=== PATIENT | female | born 1935 | race Caucasian/White ===

== ENCOUNTER 2016-07-24 00:01 | Inpatient (IN) | payer MEDICARE, OTHER, MEDICAID ==
[~2016-07-24] VITALS: Ht 180.3 cm; Wt 72.6 kg
[2016-07-24 01:50] LABS: BASOPHILS 0.2 % (0.0-2.0); EOSINOPHILS 1.1 % (0-7); HEMOGLOBIN 12.2 g/dL (12-16); IMMATURE GRANULOCYTES 0.1 % (0-5); LYMPHOCYTES 15.4 % (15-50); MCH 30.7 pg (26.0-34.0); MCHC 31.3 g/dL (31.0-37.0); MCV 98.2 fL (80.0-100.0); MEAN PLATELET VOLUME 11.4 fL (7.4-10.4); MONOCYTES 14.7 % (2-11); NEUTROPHILS 68.5 % (40-80); PLATELET COUNT 110 10x3/uL (130-400); RBC 3.97 10x6/uL (4.00-5.40); RDW 13.7 % (11.5-14.5); WBC 9.3 10x3/uL (4.8-10.8)
[2016-07-24 01:59] LABS: ALBUMIN 2.3 g/dL (3.4-5.0); ALKALINE PHOSPHATASE 61 U/L (46-116); ALT (SGPT) 10 U/L (10-68); CALC OSMOLALITY 282 mosm/kg (275-300); CALCIUM 9.6 mg/dL (8.5-10.1); CARBON DIOXIDE 31.8 mmol/L (21.0-32.0); CHLORIDE - SERUM 106 mmol/L (98-107); CREATININE - SERUM 0.6 mg/dL (0.6-1.3); GLUCOSE 94 mg/dL (74-106); POTASSIUM - SERUM 4.4 mmol/L (3.5-5.1); PROTEIN - SERUM 6.6 g/dL (6.4-8.2); SODIUM 141 mmol/L (136-145); UREA NITROGEN 18 mg/dL (7-18); eGFR NON AFRICAN AMERICAN > 90 mL/min (90-120)
[2016-07-24 02:09] LABS: APPEARANCE CLEAR (CLEAR); BILIRUBIN NEGATIVE (NEGATIVE); COLOR YELLOW (YELLOW); GLUCOSE NEGATIVE (NEGATIVE); KETONE SMALL mg/dL (NEGATIVE); LEUKOCYTE ESTERASE TRACE (NEGATIVE); NITRITE NEGATIVE (NEGATIVE); PROTEIN NEGATIVE (NEGATIVE); SPECIFIC GRAVITY 1.015 (1.005-1.020); UROBILINOGEN NORMAL (NORMAL)
[2016-07-24 02:14] LABS: UDS - AMPHET NEGATIVE QUAL (NEGATIVE); UDS - BARB NEGATIVE QUAL (NEGATIVE); UDS - BENZO NEGATIVE QUAL (NEGATIVE); UDS - COCAINE NEGATIVE QUAL (NEGATIVE); UDS - METH NEGATIVE QUAL (NEGATIVE); UDS - OPIATE NEGATIVE QUAL (NEGATIVE); UDS - PCP NEGATIVE QUAL (NEGATIVE); UDS - THC NEGATIVE QUAL (NEGATIVE)
[2016-07-24 02:21] LABS: AMORPHOUS SEDIMENT >1+ /lpf (NONE SEEN); BACTERIA MODERATE /hpf (NONE SEEN); EPITHELIAL CELLS 0-5 /hpf (0-5); HYALINE CAST RARE /lpf (NONE SEEN); RED CELLS - URINE 0-5 /hpf (0-5); WHITE CELLS - URINE 0-5 /hpf (0-5)
[2016-07-24 03:39] LABS: PRO BNP 623 pg/mL (0-450); TROPONIN-I < 0.017 ng/mL (0.000-0.060)
--- NOTE | 2016-07-24 07:45 | NUR ---
ADMITTED TO ROOM 2217 VIA CART FROM ER S/O PT CONFUSED .INCONT OF URINE CHGED REPOSITIONED FOR COMFORT.
--- NOTE | 2016-07-24 09:00 | NUR ---
QUIENT IN ROOM .
[2016-07-24 09:23] VITALS: BP 111/46
--- NOTE | 2016-07-24 10:00 | NUR ---
LAYING QUIETLY WITH EYES CLOSED AT PRESENT N/C .
--- NOTE | 2016-07-24 10:30 | NUR ---
16 FR COREAS PLACED IN STR MANNER RAO WELL AT PRESENT N/C AT PRESENT.
[2016-07-24] MEDS ORDERED: KEPPRA500 MG PO (10:39)
[2016-07-24] MEDS ORDERED: KEPPRA250 MG PO (10:40)
[2016-07-24] MEDS ORDERED: K-DUR20 MEQ (10:41)
[2016-07-24] MEDS ORDERED: ACETAMINOPHEN325 MG PO (10:43)
[2016-07-24] MEDS ORDERED: SENNA LAXATIVE8.6 MG PO (10:47)
[2016-07-24] MEDS ORDERED: HYDROCODON-ACE1 EAC7 PO (10:47)
[2016-07-24] MEDS ORDERED: DESERYL100 MG PO (10:49)
[2016-07-24] MEDS ORDERED: ZYPREXA5 MG PO (10:50)
[2016-07-24] MEDS ORDERED: DULCOLAX5 MG PO (10:51)
[2016-07-24] MEDS ORDERED: EFFEXOR XR37.5 MG PO (10:52)
[2016-07-24] MEDS ORDERED: CARAFATE1 G PO (10:53)
[2016-07-24] MEDS ORDERED: LACTINEX C1 TAB.CHEW (10:55)
[2016-07-24] MEDS ORDERED: MILK OF MAGNESI30 ML PO (10:56)
[2016-07-24] MEDS ORDERED: VITAMIN D31000 UNIT (10:58)
[2016-07-24] MEDS ORDERED: VITAMIN D2000 UNIT PO (10:59)
[2016-07-24] MEDS ORDERED: CALCIUM 500 +1 EAC3 PO (11:02)
[2016-07-24] MEDS ORDERED: DEPAKOTE500 MG PO (11:04)
[2016-07-24] MEDS ORDERED: SYNTHROID100 MCG PO (11:05)
[2016-07-24 11:47] VITALS: BP 120/52
--- NOTE | 2016-07-24 13:00 | NUR ---
QUIET N/C VOICED AT PRESENT.
--- NOTE | 2016-07-24 15:00 | NUR ---
QUIET IN ROOM AT PRESENT.
[2016-07-24] MEDS ORDERED: EFFEXOR37.5 MG PO (15:08)
[2016-07-24 16:05] VITALS: BP 127/43
--- NOTE | 2016-07-24 16:51 | NUR ---
Patient Name: STEPHANI BROWN Admission Status: ER Accout number: [id number] Admission Date: 07-24-2016 : 1933 Admission Diagnosis: Attending: EMMETT Current LOS: 1 Anticipated DC Date: 07-25-2016 Planned Disposition: [facility] Primary Insurance: MEDICARE A & B Discharge Planning Comments: CM CALLED PATIENTS CONTACT (ASHLEY) IN REGARDS TO DISCHARGE NEEDS AND PLANS. PATIENT HAS LIVED AT [facility] FOR YEARS. PATIENT WILL RETURN THERE AT DISCHARGE. PATIENT WAS IN A WHEELCHAIR MOST OF TIME PER ASHLEY. PATIENTS PCP IS DR. MACKEY AT FACILITY AND PHARMACY IS IN HOUSE. CM WILL CONTINUE TO FOLLOW PATIENT WITH D/C NEEDS AND PLANS. PCP DR. MACKEY [facility] IN HOUSE PHARMACY ASHLEY (FRIEND) [phone] LUIS ANTONIO (DAUGHTER) LIVES IN [place] [phone] Robotics Systems Engineer: Claribel Kennedy How many steps to enter\exit or inside your home? 0 0 * PCP DR. MACKEY 0 * Pharmacy [facility]SE [facility] * Preadmission Environment [facility] 0 * Facility Name [facility] 0 * Partial ADLs (Assistance needed) Ambulation Bathing Dressing Medication Management Toileting Transfers 0 * Equipment Wheelchair 0 * List name and contact numbers for known caregivers / representatives who currently or will assist patient after discharge: ASHLEY SU (FRIEND) [phone] LUIS ANTONIO MEZA (DAUGHTER) [phone] 0 * Community resources currently utilized None 0 * Additional services required to return to the preadmission environment? Yes 0 * Can the patient safely return to the preadmission environment? Yes 0 * Has this patient been hospitalized within the prior 30 days at any hospital? No 0 Grand Total: 0
--- NOTE | 2016-07-24 17:00 | NUR ---
FED BY EZIO YEH WELL N/C VOICED .
--- NOTE | 2016-07-24 19:00 | NUR ---
STATUS REMAINS UNCHGD REPOSITIONED FOR COMFORT.
[2016-07-24 19:44] VITALS: BP 111/46; BMI 39.1
--- NOTE | 2016-07-24 20:00 | NUR ---
ASSESSMJENT PER FLOWSHEET. IV PATENT LEFT ARM OF NS AT 30CC'S/HR. COREAS TO BS DRAINAGE WITH YELLOW URINE. O2 ON 2L/M PER NC. CONFUSED AT TIMES BOX ALARM ON. SCD'S ON. SR UP X2 CALL LIGHT WITHIN REACH.
[2016-07-24 21:00] VITALS: BP 113/53
--- NOTE | 2016-07-24 21:45 | NUR ---
MEDS GIVEN PER MAR WITH APPLE SAUCE.
--- NOTE | 2016-07-25 | NUR ---
EWJL=[id number]. NO COVERAGE NEEDED. COMPLETE BED BATH GIVEN BY MANAGER INTERN
[2016-07-25 01:00] VITALS: BP 110/48
--- NOTE | 2016-07-25 02:15 | NUR ---
REPOSITIONED IN BED SR UP X2 CALL LIGHT WITHIN REACH BOX ALARM ON. DOOR OPENED.
--- NOTE | 2016-07-25 04:31 | NUR ---
EYES CLOSED RESPIRATIONS WITH EASE AND UNLABORED.
[2016-07-25 05:00] VITALS: BP 122/48
[2016-07-25 05:41] LABS: BASOPHILS 0.1 % (0.0-2.0); EOSINOPHILS 0.5 % (0-7); HEMATOCRIT 38.4 % (36.0-48.0); HEMOGLOBIN 12.2 g/dL (12-16); IMMATURE GRANULOCYTES 0.1 % (0-5); LYMPHOCYTES 21.2 % (15-50); MCHC 31.8 g/dL (31.0-37.0); MCV 97.5 fL (80.0-100.0); MEAN PLATELET VOLUME 11.3 fL (7.4-10.4); MONOCYTES 15.6 % (2-11); NEUTROPHILS 62.5 % (40-80); PLATELET COUNT 113 10x3/uL (130-400); RBC 3.94 10x6/uL (4.00-5.40); RDW 13.6 % (11.5-14.5); WBC 7.5 10x3/uL (4.8-10.8)
[2016-07-25 06:18] LABS: ALBUMIN 2.5 g/dL (3.4-5.0); ALKALINE PHOSPHATASE 59 U/L (46-116); ALT (SGPT) 8 U/L (10-68); BILIRUBIN - TOTAL 0.32 mg/dL (0.2-1.3); CALC OSMOLALITY 285 mosm/kg (275-300); CALCIUM 9.4 mg/dL (8.5-10.1); CARBON DIOXIDE 31.4 mmol/L (21.0-32.0); CHLORIDE - SERUM 103 mmol/L (98-107); CREATININE - SERUM 0.7 mg/dL (0.6-1.3); GLUCOSE 99 mg/dL (74-106); PROTEIN - SERUM 6.3 g/dL (6.4-8.2); SODIUM 142 mmol/L (136-145); UREA NITROGEN 22 mg/dL (7-18); eGFR NON AFRICAN AMERICAN 85 mL/min (90-120)
[2016-07-25 06:22] LABS: POTASSIUM - SERUM 3.4 mmol/L (3.5-5.1)
--- NOTE | 2016-07-25 07:50 | NUR ---
LAYING QUIETLY IN BED RESP EVEN AND UNLABORED COREAS CATH IN PLACE AT PRESENT.IV CONT TO LEFT FOREARM AT PRESENT 02 CONT VIA N/C AT PRESENT.
[2016-07-25 08:03] VITALS: BP 97/57
--- NOTE | 2016-07-25 09:47 | NUR ---
VISITOR AT BEDSIDE PT SLEEPING QUIETLY AT PRESENT RESP EVENN AND UNLABORED 02 REMAINS AT 2LN/C.IV CONT AT 30CC/HR/IVAC/LFA.
[2016-07-25 10:49] VITALS: Ht 180.3 cm; Wt 72.6 kg
--- NOTE | 2016-07-25 11:00 | NUR ---
RE-POSITIONED FOR COMFORT AT PRESENT 02 CONT AT 2L N/C AT PRESENT.
[2016-07-25 12:36] VITALS: BP 154/97
--- NOTE | 2016-07-25 13:00 | NUR ---
AWAKE LOOKING AROUND IN ROOM N/C VOICED.
--- NOTE | 2016-07-25 15:28 | NUR ---
REPOSITIONED FOR COMFORT AT PRESENT N/C AT PRESENT.
--- NOTE | 2016-07-25 15:31 | NUR ---
WOUND CARE CONSULT: PT IS AT RISK FOR SKIN BREAKDOWN D/T BEING BEDBOUND. SHE HAS A F/C. SHE REQUIRES BEING TURNED/REPOSITIONED EVERY 2 HOURS. D/T CONFUSION IT IS BEST AT THIS TIME NOT TO PLACE HER ON AN AIR MATTRESS SINCE IT WILL INCREASE HER RISK FOR FALLS. WOUND CARE WILL CONTINUE TO MONITOR.
[2016-07-25 16:02] VITALS: BP 90/41
--- NOTE | 2016-07-25 17:14 | NUR ---
SCD'S IN PLACE VANGIE PT TALKS CONFUSED AT TIMES RE-ORIENTED.
--- NOTE | 2016-07-25 19:15 | NUR ---
BEDSIDE REPORT RECEIVED AND CARE OF PT ASSUMED. PT LYING IN SUPINE POSITION PROPPED ONTO THE LEFT SIDE WITH PILLOWS WITH HEELS BRIDGED WITH PILLOW. IV IN LEFT FA PATENT WITH NS INFUSING AT 30 ML / HR. COREAS CATHETER DRAINING TO GRAVITY WITY YELLOW URINE IN COLLECTION BAG. O2 IN USE AT 2L VIA NC. WILL MONITOR CLOSLEY FOR NEEDS.
--- NOTE | 2016-07-25 19:50 | NUR ---
EMPTIED 850 YELLOW URINE FROM COREAS AND DOCUMENTED.
[2016-07-25 21:00] VITALS: BP 102/55
--- NOTE | 2016-07-25 21:30 | NUR ---
TURNED PT TO LEFT SIDE PROPPED WITH PILLOW AND BRIDGED HEELS, PER TURN SCHEDULE.
--- NOTE | 2016-07-25 21:45 | NUR ---
HS MEDICATIONS GIVEN CRUSHED AND MIXED WITH PUDDING. PT TOLERATED WELL. WILL CONTINUE TO MONITOR FOR NEEDS.
--- NOTE | 2016-07-25 23:30 | NUR ---
FSBS 119 REQUIRING NO COVERAGE PER SLIDING SCALE.
[2016-07-26 01:00] VITALS: BP 112/52
--- NOTE | 2016-07-26 03:30 | NUR ---
COREAS CARE PERFORMED.
[2016-07-26 05:00] VITALS: BP 111/49
[2016-07-26 05:28] LABS: BASOPHILS 0.2 % (0.0-2.0); EOSINOPHILS 2.7 % (0-7); HEMATOCRIT 36.9 % (36.0-48.0); HEMOGLOBIN 11.4 g/dL (12-16); IMMATURE GRANULOCYTES 0.3 % (0-5); LYMPHOCYTES 26.3 % (15-50); MCH 30.9 pg (26.0-34.0); MCHC 30.9 g/dL (31.0-37.0); MEAN PLATELET VOLUME 11.7 fL (7.4-10.4); MONOCYTES 18.9 % (2-11); NEUTROPHILS 51.6 % (40-80); PLATELET COUNT 126 10x3/uL (130-400); RBC 3.69 10x6/uL (4.00-5.40); RDW 13.6 % (11.5-14.5); WBC 6.2 10x3/uL (4.8-10.8)
[2016-07-26 05:52] LABS: ALBUMIN 2.2 g/dL (3.4-5.0); ALKALINE PHOSPHATASE 61 U/L (46-116); ALT (SGPT) 8 U/L (10-68); CALC OSMOLALITY 283 mosm/kg (275-300); CALCIUM 9.3 mg/dL (8.5-10.1); CHLORIDE - SERUM 102 mmol/L (98-107); CREATININE - SERUM 0.7 mg/dL (0.6-1.3); GLUCOSE 87 mg/dL (74-106); PROTEIN - SERUM 6.3 g/dL (6.4-8.2); SODIUM 142 mmol/L (136-145); UREA NITROGEN 19 mg/dL (7-18); eGFR NON AFRICAN AMERICAN 85 mL/min (90-120)
[2016-07-26 05:59] LABS: POTASSIUM - SERUM 3.7 mmol/L (3.5-5.1)
--- NOTE | 2016-07-26 06:07 | NUR ---
PLACED CUSHIONS ON O2 TUBING, PT C/O TUBES ARE HURTING HER EARS.
[2016-07-26 07:53] VITALS: BP 100/51
--- NOTE | 2016-07-26 08:20 | NUR ---
ASSESSMENT PER FLOW SHEET.PT WITHOUT DISTRESS.CONFUSED AT PRESENT.FALL PREVENTION IN PLACE.DOOR OPEN
--- NOTE | 2016-07-26 11:30 | NUR ---
FSBS 124.PAIN MEDS ORDERED PER AUG.C/O PAIN TO RIGHT KNEE.FAMILY STATES IT HAS BOTHERED HER SINCE SHE FELL AT [facility].MONITOR
[2016-07-26 11:59] VITALS: BP 128/93
--- NOTE | 2016-07-26 13:59 | EC ---
PATIENT:STEPHANI BROWN DATE OF SERVICE: 07/25/16 SEX: F MEDICAL RECORD: [id number] DATE OF : [birth year] LOCATION:D.[facility] AGE OF PATIENT: 81 ADMISSION DATE: 07/25/16 REFERRING PHYSICIAN: INTERPRETING PHYSICIAN: STACY ESTEVEZ MD ECHOCARDIOGRAM REPORT ECHO CHARGES 4 ECHO COMPLETE CLINICAL DIAGNOSIS: CHF ECHOCARDIOGRAPHIC MEASUREMENTS (adult normal given) AC root (d.<3.7cm) 3.0 LV Septum d (<1.2 cm> 1.4 Valve Excursion 0.5 LV Septum (systole) 2.2 Left Atria (s.<4.0cm> 3.5 LVPW d(<1.2cm) 1.2 RV (d.<2.3cm) 2.2 LVPW (sytole) 1.9 LV diastole(<5.6CM) 4.9 MV E-F(>70mm/sec) LV systole 2.9 LVOT Diameter 1.8 MV exc.(>10mm) Est.ejection fraction (50-75%) Pericardial Effusion N DOPPLER: LVIT A 89.0 E 72.0 LA RVSP 50.0 LVOT 135 AOP1/2T Asc. Ao 374 RVOT 82.0 RA PA 108 AV Gradient Peak 56.1 AV Mean 32.4 AV Area 0.8 MV Gradient Peak 3.2 MV Mean 1.1 MV Area COMMENTS: Blood Bank Laboratory Professional: Steffanie AYALAOE Feed Preparation Operator:Bashir Reynaga TAPE# PACS DATE OF SERVICE: 07/25/2016 Echocardiogram FINDINGS: 1. Left ventricular chamber size is within normal limits. Left ventricular systolic function is lower limits of normal ejection fraction in the 45% to 50% range. 2. Left atrium is within normal limits at 3.5 cm. Right atrium and right ventricular chamber sizes are as well within normal limits. ECHOCARDIOGRAM REPORT [id number] STEPHANI BROWN 3. Valvular structures: Aortic valve demonstrates [id number]-ec-inbzzm calcific aortic stenosis. The valve area was calculated to 0.8 cm-squared and there is a gradient of 56 mm across the valve. The remaining valvular structures have normal structure and motion. 4. Doppler interrogation elsewise only reveals trace mitral regurgitation. No other valvular insufficiency or stenosis but pulmonary systolic pressure is elevated estimated at 15 mmHg. 5. No evidence of pericardial effusion or left ventricular thrombus. TRANSINT:[id number] Voice Confirmation ID: [id number] DOCUMENT ID: [id number] STACY ESTEVEZ MD at 1359 CC: [id number] DICTATION DATE: 07/25/16 160 SPECIAL EDUCATION KINDERGARTEN TEACHER: 07/25/16 1657 ADM IN [facility] [address] [place] [address]
[2016-07-26 16:14] VITALS: BP 114/73
--- NOTE | 2016-07-26 18:25 | NUR ---
REMAINS WITHOUT DISTRESS.REMAINS WITHOUT CHANGE FROM INITIAL ASSESSMENT.CONT PLAN OF CARE
--- NOTE | 2016-07-26 19:00 | NUR ---
PATIENT SLEEPING ON LEFT SIDE. LETHARGIC BUT AROUSES TO VOICE. HOB 30 DEGREES. RR EVEN AND UNLABORED. 0 S/S OF DISTRESS. DENIES PAIN AT THIS TIME. O2 @ 2L VIA NC. IV TO RIGHT WRIST PATENT WITH NO REDNESS OR SWELLING. COREAS SECURED WITH STATLOCK AND DRAINING TO GRAVITY. B/A ON. SRX2. BED LOW. DOOR OPEN.
[2016-07-26 21:03] VITALS: BP 117/49
[2016-07-27] VITALS: BP 103/51
--- NOTE | 2016-07-27 03:10 | NUR ---
20G IV SITED IN R WRIST X1 ATTEMPT, RAO WELL
[2016-07-27 04:00] VITALS: BP 120/62
[2016-07-27 05:09] LABS: BASOPHILS 0.2 % (0.0-2.0); EOSINOPHILS 4.4 % (0-7); HEMATOCRIT 36.7 % (36.0-48.0); HEMOGLOBIN 11.4 g/dL (12-16); IMMATURE GRANULOCYTES 0.3 % (0-5); LYMPHOCYTES 24.9 % (15-50); MCH 30.8 pg (26.0-34.0); MCHC 31.1 g/dL (31.0-37.0); MCV 99.2 fL (80.0-100.0); MEAN PLATELET VOLUME 11.1 fL (7.4-10.4); MONOCYTES 19.1 % (2-11); NEUTROPHILS 51.1 % (40-80); PLATELET COUNT 132 10x3/uL (130-400); RDW 13.6 % (11.5-14.5); WBC 6.3 10x3/uL (4.8-10.8)
[2016-07-27 05:33] LABS: ALBUMIN 2.3 g/dL (3.4-5.0); ANION GAP 10.7 mmol/L (8-16); BILIRUBIN - TOTAL 0.2 mg/dL (0.2-1.3); CALCIUM 9.4 mg/dL (8.5-10.1); CARBON DIOXIDE 33.8 mmol/L (21.0-32.0); CREATININE - SERUM 0.8 mg/dL (0.6-1.3); POTASSIUM - SERUM 3.5 mmol/L (3.5-5.1)
--- NOTE | 2016-07-27 07:00 | NUR ---
REPORT RECIEVED ASSUMED CARE. PATIENT IN BED WITH MARIA ISABEL NTACT. NO COMPLAINTS. CALL LIGHT WITHIN REACH.
[2016-07-27 08:03] VITALS: BP 144/63
[2016-07-27 11:11] VITALS: BP 84/63
--- NOTE | 2016-07-27 12:23 | NUR ---
NUTRITION MONITORING & EVAL CHART REVIEWED, GOOD PO INTAKE AHA DIET WHEN ASSISTED. WILL CONTINUE TO PROVIDE DIET, MONITOR PT PROGRESS. RD FOLLOWING
[2016-07-27 15:57] VITALS: BP 103/40
--- NOTE | 2016-07-27 18:45 | NUR ---
PATIENT IN BED WITH IV INTACT. NO COMPLAINTS AT THIS TIME. REFUSES BSCDS. CALL LIGHT WITHIN REACH.
--- NOTE | 2016-07-27 19:00 | NUR ---
PATIENT SLEEPING ON RIGHT SIDE. HOB 30 DEGREES. AROUSES TO VOICE BUT IS DISORIENTED TO PLACE, TIME, AND SITUATION. RR EVEN AND UNLABORED. 0 S/S OF DISTRESS. O2 @ 2L VIA NC. DENIES PAIN AT THIS TIME. IV TO RIGHT WRIST PATENT WITH NO REDNESS OR SWELLING. COREAS SECURED WITH STATLOCK AND DRAINING TO GRAVITY. B/A ON. SRX2. BED LOW. DOOR OPEN.
[2016-07-27 20:53] VITALS: BP 134/74
--- NOTE | 2016-07-27 22:30 | NUR ---
ASSESSMENT COMPLETE. NIGHTTIME MEDS GIVEN CRUSHED IN PUDDING. REPOSITIONED PATIENT TO BACK.
--- NOTE | 2016-07-28 | NUR ---
REPOSITIONED PATIENT TO LEFT.
[2016-07-28 00:17] VITALS: BP 98/54
--- NOTE | 2016-07-28 02:00 | NUR ---
REPOSITIONED PATIENT TO BACK. BATH GIVEN.
[2016-07-28 03:45] VITALS: BP 117/73
--- NOTE | 2016-07-28 04:33 | NUR ---
REPOSITIONED PATIENT TO RIGHT.
[2016-07-28 05:26] LABS: BASOPHILS 0.2 % (0.0-2.0); EOSINOPHILS 2.5 % (0-7); HEMATOCRIT 37.9 % (36.0-48.0); HEMOGLOBIN 11.7 g/dL (12-16); IMMATURE GRANULOCYTES 0.3 % (0-5); LYMPHOCYTES 26.5 % (15-50); MCH 30.8 pg (26.0-34.0); MCHC 30.9 g/dL (31.0-37.0); MCV 99.7 fL (80.0-100.0); MEAN PLATELET VOLUME 11.3 fL (7.4-10.4); MONOCYTES 19.8 % (2-11); NEUTROPHILS 50.7 % (40-80); PLATELET COUNT 173 10x3/uL (130-400); RDW 13.6 % (11.5-14.5); WBC 8.7 10x3/uL (4.8-10.8)
[2016-07-28 05:43] LABS: ALBUMIN 2.5 g/dL (3.4-5.0); ANION GAP 5.2 mmol/L (8-16); BILIRUBIN - TOTAL 0.2 mg/dL (0.2-1.3); CALCIUM 9.8 mg/dL (8.5-10.1); CARBON DIOXIDE 37.6 mmol/L (21.0-32.0); CREATININE - SERUM 0.9 mg/dL (0.6-1.3); POTASSIUM - SERUM 3.8 mmol/L (3.5-5.1); PROTEIN - SERUM 6.7 g/dL (6.4-8.2)
--- NOTE | 2016-07-28 08:06 | NUR ---
PATIENT IS AWAKE, ALERT AND VERY CONFUSED. PATIENT IS ORIENTED TO SELF ONLY. WITH ASSIST FROM AUTOMOTIVE MECHANIC TURNED PATIENT FROM HER RIGHT SIDE TO HER BACK. HOB 30 DEGREES. BED IN LOWEST POSITION, CALL LIGHT IN REACH. BED RAILS UP X'S 2. NO SIGNS OF DISTRESS NOTED. PATIENT IS RECIEVING OXYGEN VIA NASAL CANNULA AT 2.5L/MIN.
[2016-07-28 08:16] VITALS: BP 120/56
[2016-07-28 12:20] VITALS: BP 132/60
--- NOTE | 2016-07-28 13:27 | NUR ---
TURNED PATIENT FROM HER RIGHT SIDE TO HER LEFT SIDE. SCDS TO BILATERAL LEGS.
--- NOTE | 2016-07-28 13:57 | NUR ---
PATIENT RESTING QUIETLY WITH EYES CLOSED. NO SIGNS OF DISTRESS NOTED.
--- NOTE | 2016-07-28 15:38 | NUR ---
COREAS CARE COMPLETED AT THIS TIME. WITH ASSISTANCE FROM PROGRAM DIR, TURNED PATIENT FROM HER LEFT SIDE TO HER RIGHT SIDE, POSITIONED WITH PILLOWS. ASSISTED PATIENT DRINKING TEA. PATIENT DENIES FURTHER NEEDS AT THIS TIME.
[2016-07-28 15:49] VITALS: BP 128/54
[2016-07-28 20:00] VITALS: BP 110/62
--- NOTE | 2016-07-28 20:00 | NUR ---
ASSESSMENT PER FLOWSHEET. IV PATENT RT WRIST SALINE LOCKED. O2 ON 2L/M PER NC. NO DISTRESS. COREAS TO BEDSIDE DRAINAGE WITH FARIDA COLORED URINE.REPOSITIONED FOR COMFORT. BED ALARM ON SR UP X2 CALL LIGHT WITHIN REACH.
--- NOTE | 2016-07-28 21:30 | NUR ---
MEDS GIVEN CRUSHED IN CHOCOLATE PUDDING.
[2016-07-29] VITALS: BP 144/72
--- NOTE | 2016-07-29 | NUR ---
KYPV=401. NO COVERAGE NEEDED.
--- NOTE | 2016-07-29 03:30 | NUR ---
COMPLETE BED BATH WITH LINENS CHANGED.
[2016-07-29 04:00] VITALS: BP 102/66
[2016-07-29 05:24] LABS: BASOPHILS 0.5 % (0.0-2.0); EOSINOPHILS 2.9 % (0-7); HEMATOCRIT 36.6 % (36.0-48.0); HEMOGLOBIN 11.4 g/dL (12-16); IMMATURE GRANULOCYTES 0.4 % (0-5); MCH 30.6 pg (26.0-34.0); MCHC 31.1 g/dL (31.0-37.0); MCV 98.4 fL (80.0-100.0); MEAN PLATELET VOLUME 10.8 fL (7.4-10.4); MONOCYTES 18.4 % (2-11); NEUTROPHILS 49.8 % (40-80); PLATELET COUNT 187 10x3/uL (130-400); RBC 3.72 10x6/uL (4.00-5.40); RDW 13.5 % (11.5-14.5); WBC 7.3 10x3/uL (4.8-10.8)
--- NOTE | 2016-07-29 06:00 | NUR ---
MEDS GIVEN PER AUG. FSBS=91. NO COVERAGE NEEDED
[2016-07-29 06:06] LABS: ALBUMIN 2.4 g/dL (3.4-5.0); BILIRUBIN - TOTAL 0.26 mg/dL (0.2-1.3); CALCIUM 9.7 mg/dL (8.5-10.1); CARBON DIOXIDE 36.4 mmol/L (21.0-32.0); CREATININE - SERUM 0.9 mg/dL (0.6-1.3); POTASSIUM - SERUM 3.4 mmol/L (3.5-5.1); PROTEIN - SERUM 6.5 g/dL (6.4-8.2)
[2016-07-29 08:03] VITALS: BP 101/59
--- NOTE | 2016-07-29 08:10 | NUR ---
ASSISTING PT WITH BREAKFAST, PT ASSESSMENT COMPLETE, TURNED TO LEFT SIDE, NEURO CHECK COMPLETE, NO COMPLAINTS, SIDE RAILS UP X2, CALL LIGHT IN REACH, BED ALARM ON, WILL CONTINUE TO MONITOR
[2016-07-29 11:11] VITALS: BP 87/45
[2016-07-29 11:46] VITALS: BP 109/72
--- NOTE | 2016-07-29 11:47 | NUR ---
REVIEWED PATIENT'S ABNORMAL V/S DOCUMENTED IN THE FLOWSHEET. CHECKED V/S PERSONALLY. DOCUMENTED IN THE FLOWSHEET.
--- NOTE | 2016-07-29 14:40 | NUR ---
PT AWAKE AND ORIENTED TO SELF, NO COMPLAINTS AT THIS TIME, BED LOWEST POSITION, CALL LIGHT IN REACH, WILL CONTINUE TO MONITOR
[2016-07-29 16:22] VITALS: BP 110/82
--- NOTE | 2016-07-29 20:00 | NUR ---
ASSESSMENT PER FLOWSHEET. IV SALINE LOCK TO RT WRIST SITE CLEAR. COREAS TO BEDSIDE DRAINAGE WITH FARIDA COLORED URINE. BOX ALARM ON SR UP X2 CALL LIGHT WITHIN REACH SCD'S ON. TURNED Q2HS. O2 ON 2L/M PER NC.
--- NOTE | 2016-07-29 21:30 | NUR ---
MEDS GIVEN CRUSHED IN PUDDING.
--- NOTE | 2016-07-30 | NUR ---
REPOSITIONED IN BED OKEB=450. NO COVERAGE NEEDED.
[2016-07-30 00:30] VITALS: BP 132/68
[2016-07-30 05:00] VITALS: BP 120/55
[2016-07-30 05:01] LABS: BASOPHILS 0.3 % (0.0-2.0); HEMATOCRIT 39.4 % (36.0-48.0); HEMOGLOBIN 12.6 g/dL (12-16); IMMATURE GRANULOCYTES 0.7 % (0-5); LYMPHOCYTES 26.8 % (15-50); MCH 31.2 pg (26.0-34.0); MCV 97.5 fL (80.0-100.0); MEAN PLATELET VOLUME 11.6 fL (7.4-10.4); MONOCYTES 18.2 % (2-11); PLATELET COUNT 188 10x3/uL (130-400); RBC 4.04 10x6/uL (4.00-5.40); RDW 13.3 % (11.5-14.5); WBC 8.7 10x3/uL (4.8-10.8)
[2016-07-30 05:31] LABS: ANION GAP 8.6 mmol/L (8-16); CALCIUM 9.7 mg/dL (8.5-10.1); POTASSIUM - SERUM 3.6 mmol/L (3.5-5.1)
--- NOTE | 2016-07-30 06:15 | NUR ---
HCPF=456. NO COVERAGE.
--- NOTE | 2016-07-30 07:59 | NUR ---
LAYING QUIETLY IN BED EYES CLOSED AT PRESENT N/C AT THIS TIME.
[2016-07-30 09:12] VITALS: BP 104/62
[2016-07-30 12:59] VITALS: BP 148/70
--- NOTE | 2016-07-30 14:13 | NUR ---
QUIET IN ROOM ATTEMPTING TO FEED SELF AT PRESENT TALKING IN THE PAST.COREAS CATH INTACT AND DRAINING YELLOW URINE AT PRESENT.
--- NOTE | 2016-07-30 16:03 | NUR ---
SLEEPING QUIETLY AT PRESENT N/C RESP EVEN AND UNLABORED AT PRESENT.
[2016-07-30 17:33] VITALS: BP 137/68
--- NOTE | 2016-07-30 19:20 | NUR ---
RECIEVED SHIFT REPORT. PT IS LYING IN BED. PT IS ONLY ORIENTED TO SELF AT THIS TIME. IV IS PATENT AND SALINE LOC AT THIS TIME. PT REQUIRES ASSISTANCE TURNING IN BED FOR COMFORT AND SKIN CARE. COREAS IS DRAINING URINE BY GRAVITY. O2 @ 2 PER NASAL CANNULA. SCD'S ON. PT DENIES ANY PAIN AT THIS TIME. NO NEEDS ARE VERBALIZED AT THIS TIME. WILL CONTINUE TO MONITOR. SIDE RAILS ARE UP X 2. BED IS IN LOWEST POSITION. BED ALARM IS ON FOR SAFETY. CALL LIGHT IS WITHIN REACH.
[2016-07-30 21:17] VITALS: BP 129/64
--- NOTE | 2016-07-30 21:36 | NUR ---
SHIFT ASSESSMENT COMPLETED. NIGHT MEDS GIVEN CRUSHED IN PUDDING WITH NO PROBLEMS. NO NEEDS ARE VOICED. WILL MONITOR. SIDE RAILS X 2. BED LOW. BED ALARM ON. CALL LIGHT IN REACH.
[2016-07-31 05:37] LABS: BASOPHILS 0.2 % (0.0-2.0); EOSINOPHILS 2.1 % (0-7); HEMATOCRIT 39.1 % (36.0-48.0); HEMOGLOBIN 12.1 g/dL (12-16); IMMATURE GRANULOCYTES 0.4 % (0-5); LYMPHOCYTES 29.3 % (15-50); MCH 30.6 pg (26.0-34.0); MCHC 30.9 g/dL (31.0-37.0); MCV 98.7 fL (80.0-100.0); MEAN PLATELET VOLUME 10.8 fL (7.4-10.4); MONOCYTES 18.5 % (2-11); NEUTROPHILS 49.5 % (40-80); PLATELET COUNT 212 10x3/uL (130-400); RBC 3.96 10x6/uL (4.00-5.40); RDW 13.5 % (11.5-14.5); WBC 8.1 10x3/uL (4.8-10.8)
[2016-07-31 06:04] LABS: ALBUMIN 2.7 g/dL (3.4-5.0); ANION GAP 6.6 mmol/L (8-16); BILIRUBIN - TOTAL 0.22 mg/dL (0.2-1.3); CARBON DIOXIDE 38.9 mmol/L (21.0-32.0); POTASSIUM - SERUM 3.5 mmol/L (3.5-5.1); PROTEIN - SERUM 6.5 g/dL (6.4-8.2)
--- NOTE | 2016-07-31 07:25 | NUR ---
PATIENT RECEIVED ALERT IN HIGH HDEZ POSITION. RESPIRATIONS EVEN AND UNLABORED. SIDE RAILS UP X3. BED IN LOW POSITION. CALL LIGHT IN REACH. BED ALARM ON.
--- NOTE | 2016-07-31 08:53 | NUR ---
PATIENT ALERT IN HIGH HDEZ POSITION. NO SIGNS OF DISTRESS NOTED. SCHEDULED MEDICATION ADMINISTERED CRUSHED WITH PUDDING. SIDE RAILS UP X2. BED IN LOW POSITION. CALL LIGHT IN REACH. BED ALARM ON.
[2016-07-31 10:13] VITALS: BP 151/69
[2016-07-31] MEDS ORDERED: NYSTATIN15 GM TOPICAL (10:19)
[2016-07-31] MEDS ORDERED: Levaquin PO (10:20)
[2016-07-31] MEDS ORDERED: IPRAT-ALBUT 0.5-3 ML UPD (10:21)
--- NOTE | 2016-07-31 11:12 | NUR ---
07/31/2016 11:09 DCP: Discharge Planning DC order rec'd. Notified Leslie with [facility] of discharge. Clinicals faxed. Patient will transport via ambulance to a [facility] bed. Nursing to call report to [phone].
[2016-07-31 11:38] VITALS: BP 116/57
--- NOTE | 2016-07-31 12:16 | NUR ---
REPORT CALLED TO DANIA HSIEH, RECEIVING REPORT
--- NOTE | 2016-07-31 12:20 | NUR ---
IV TO RIGHT WRIST D/C WITH CATH TIP INTACT. SITE COVERED WITH GAUZE AND BANDAID. COREAS CARE PROVIDED. COREAS CATH D/C. APPROXIMATELY 400CC URINE REMAINED IN COLLECTION BAG
--- NOTE | 2016-07-31 13:38 | NUR ---
PATIENT D/C VIA [facility]
--- NOTE | 2016-08-09 09:40 | CN ---
PATIENT NAME:STEPHANI BROWN MEDICAL RECORD: [id number] : 31 LOCATION:D[facility] ADMIT DATE: 07/25/16 ACCOUNT: [id number] CONSULTING PHYSICIAN: NICOLAS NESS MD REFERRING PHYSICIAN: KESHA RAMIREZ MD DATE OF CONSULTATION: 07/27/2016 PULMONARY CONSULTATION CONSULT REQUESTING PHYSICIAN: Kesha Ramirez MD REASON FOR CONSULTATION: Bilateral pneumonia. HISTORY OF PRESENT ILLNESS: Ms. Brown is an 81-year-old female, who was admitted from the long term with hypoxia and acute mental status changes. Chest radiograph revealed bilateral lower lobe infiltrate. Now, the patient is more awake and alert. She is coughing. There is no significant amount of sputum production. Denied any chest pain. She is not showed that she is aspirating when she is eating. REVIEW OF SYSTEMS: Mainly in the history of present illness. PAST MEDICAL HISTORY: 1. History of anxiety, depression. 2. Possible seizure disorders. 3. Peptic ulcer disease. 4. History of diabetes mellitus, gastroesophageal reflux disease as well as peripheral vascular disease. She has a history of Alzheimer dementia. 5. Type 2 diabetes mellitus. PAST SURGICAL HISTORY: The detail is not obtainable. ALLERGIES: There are no known drug allergies. MEDICATIONS: On Tarena was reviewed. PERSONAL AND SOCIAL HISTORY: The patient is a long term resident. The smoking history is not obtainable. PHYSICAL EXAMINATION: GENERAL: Now, the patient is lying comfortably. She is not in acute distress. VITAL SIGNS: The blood pressure is 144/63, pulse is 79, respiration is 18, temperature 98.8, SPO2 is 93% on 3 liter nasal cannula. HEENT: Conjunctivae are pink. Sclerae nonicteric. NECK: Supple, no JVD. CHEST: There are bilateral crackles. No wheezing. HEART: Rhythm regular, normal sound, no murmur. ABDOMEN: Soft, bowel sounds present. No hepatosplenomegaly. RECTAL: Deferred. EXTREMITIES: No cyanosis, no clubbing, no pedal edema. SKIN: Warm, normal turgor. CENTRAL NERVOUS SYSTEM: The patient is awake and alert. The speech is normal. The gait was not tested. IMAGING: Chest radiograph: There are bilateral lower lobe infiltrate. CONSULT REPORT [id number] STEPHANI BROWN LABORATORY DATA: CBC: WBC on admission were 9.3, hemoglobin 12.2, hematocrit is 39, the platelet count 110. Chemistry: Sodium is 141, potassium 3.5, BUN is 17 and creatinine is 0.8. IMPRESSION: 1. Pneumonia, bilateral, possible aspiration pneumonia with a history of gastroesophageal reflux disease. 2. Community-acquired pneumonia. 3. Acute hypoxic respiratory failure. 4. Pulmonary hypertension with a PA pressure of 50. 5. Congestive heart failure with systolic dysfunction, EF 45%. 6. Acute mental status changes, most likely secondary to metabolic encephalopathy and with infection and pneumonia. 7. Gastroesophageal reflux disease. RECOMMENDATION: 1. Continue Rocephin. I will discontinue the Zithromax, start her on Levaquin. 2. We will get the speech pathology evaluation. 3. Acapella q.2 hourly when awake. 4. Continue Lasix. 5. Follow up labs and chest radiograph in the morning, Dr. Ramirez, once again thanks for involving me in the care of Ms. Brown. TRANSINT:[id number] Voice Confirmation ID: [id number] DOCUMENT ID: [id number] NICOLAS NESS MD at 0940 CC: KESHA RAMIREZ MD [id number] DICTATION DATE: 07/27/16 1349 SOLE PAINTER: 07/27/16 1804 DIS IN 07/31/[address] [place] [id number] [facility] [address]
--- NOTE | 2016-09-24 09:39 | DS ---
PATIENT:STEPHANI BROWN :31 MEDICAL RECORD: [id number] DISCHARGE SUMMARY ADMISSION DATE: 07/25/16 DISCHARGE DATE: 07/31/16 This is a discharge dated 07/31/2016 from the inpatient hospital. DISCHARGE DIAGNOSES: 1. Bilateral pneumonia, community acquired, possible aspiration. 2. Dehir-wi-qfijijd altered mental status. 3. Acute hypoxic respiratory failure. 4. Systolic congestive heart failure. 5. Diabetes type 2. 6. Gastroesophageal reflux disease. 7. Dysphagia. 8. Hypokalemia. 9. Aortic stenosis. 10. Hypertension. 11. Pulmonary hypertension. 12. Alzheimer dementia. 13. Peripheral vascular disease. 14. Parkinson disease with tremor. 15. Hypothyroidism. 16. Anemia. 17. Vitamin D deficiency. CONSULTS THIS HOSPITALIZATION: Pulmonary with Dr. Farley. PROCEDURES THIS HOSPITALIZATION: Echocardiogram with an EF of 45% to 50%, exgqqegu-mn-inruwf aortic stenosis. HOSPITAL COURSE: Full H&P is located elsewhere on the chart on this 81-year-old female who was admitted with altered mental status and hypoxia. Imaging was consistent with a bilateral pneumonia. She had oxygen to keep sats greater than 90 and started on Rocephin initially for antibiotic coverage. Fingerstick blood sugars were monitored throughout her hospital stay with appropriate adjustment in medications as needed. Electrolytes were managed by protocol. She had a CT head without acute findings. Azithromycin was added for antibiotic coverage. Pulmonary was consulted. She was seen by Dr. Farley. Antibiotics were adjusted. She was on Lasix for diuresis. Speech therapy was consulted for dysphagia. Case management was involved for discharge planning. She was to complete 7 days of antibiotics. She was considered stable for discharge on 07/31/2016. DISCHARGE MEDICATIONS: As per discharge medication reconciliation. DISCHARGE DISPOSITION: The patient is discharged back to [facility]. She will [facility] up with [facility] care at the [facility] and follow up with Dr. Swann as directed. At least 30 minutes was spent in this discharge activity. TRANSINT:[id number] Voice Confirmation ID: [id number] DOCUMENT ID: [id number] Dictated By: KATARINA COCHRAN I have interviewed/examined the above patient and agree with these documented DISCHARGE SUMMARY REPORT [id number] STEPHANI BROWN findings. TRIXIE SALAZAR MD at 1029 at 0939 CC: [id number] DICTATION DATE: 09/14/16 1529 DIRECTOR EMERGENCY: 09/15/16 0006 DIS IN 07/31/16 [place] [address] [facility] [place] [address]
== END 2016-07-31 13:38 | DRG 291 ==
LOC: D.ER 00:01 → D.MS 04:36 → OBSVTIME 04:36 → D.SDCHOLD 11:33 → D.MS 11:33
PROVIDERS: Emergency Medicine Emergency Medical Services; Family Medicine; ADMIT Emergency Medicine
DX: I11.0 Hypertensive heart disease with heart failure (principal); J18.9 Pneumonia, unspecified organism; G93.49 Other encephalopathy; I50.23 Acute on chronic systolic (congestive) heart failure; I35.0 Nonrheumatic aortic (valve) stenosis; E11.9 Type 2 diabetes mellitus without complications; K21.9 Gastro-esophageal reflux disease without esophagitis; E03.9 Hypothyroidism, unspecified; F20.9 Schizophrenia, unspecified; I73.9 Peripheral vascular disease, unspecified; I27.2 Other secondary pulmonary hypertension; G20 Parkinson's disease; G30.9 Alzheimer's disease, unspecified; F02.80 Dementia in other diseases classified elsewhere, unspecified severity, without behavioral disturbance, psychotic disturbance, mood disturbance, and anxiety; Z66 Do not resuscitate